=== PATIENT | male | born 1985 | race African-American/Black ===

== ENCOUNTER 2017-09-20 10:55 | Inpatient (IN) | payer OTHER ==
[~2017-09-20] VITALS: Ht 175.3 cm; Wt 85.7 kg
[2017-09-20 12:24] LABS: Basophils # (auto) 0.1 uL; Hemoglobin 19.3 g/dL (13.5-17.5); Lymphocytes # (auto) 2.1 uL; White Blood Cell 11.9 10^3/uL (4.4-10.8)
[2017-09-20 12:26] LABS: Eosinophils # (auto) 0.2 uL; Eosinophils % (auto) 1.4 % (0.0-7.0); Hematocrit 53.9 % (41.0-53.0); Lymphocytes % (auto) 17.6 % (10.0-50.0); Mean Corpuscular Hemoglobin 30.9 pg (28.0-32.0); Mean Corpuscular Hgb Conc. 35.8 g/dL (32.0-36.0); Mean Corpuscular Volume 86.3 fL (80.0-100.0); Monocytes % (auto) 8.5 % (0.0-12.0); Neutrophils # (auto) 8.5 uL; Neutrophils % (auto) 71.5 % (37.0-80.0); Nucleated Red Blood Cells % 1.4 %; Platelet Count (auto) 187 10^3/uL (140-450); Red Blood Cells 6.25 10^6/uL (4.5-5.90); Red Cell Distribution Width 13.1 % (11.8-14.3)
[2017-09-20 12:44] LABS: Albumin 3.6 g/dL (3.4-5.0); BUN/Creatinine Ratio 9.3; Magnesium 2.8 mg/dL (1.6-2.6); Total Protein 8.7 g/dL (6.4-8.2)
[2017-09-20 12:57] LABS: Potassium 2.8 mmol/L (3.5-5.1)
[2017-09-20] MEDS ORDERED: cloNIDine HCL 0.1 MG TAB PO ONE (13:30)
[2017-09-20] MEDS ORDERED: POTASSIUM CHL 10% (20 MEQ/15ML) 15ml ORAL SOLN PO ONE (13:45)
[2017-09-20] MEDS ORDERED: hydrALAZINE HCL 20 MG/ML VL IV ONE (15:15)
[2017-09-20] MEDS ORDERED: LABETALOL HCL 5 MG/ML ML 20ML VIAL IV ONE (15:15)
[2017-09-20] MEDS ORDERED: NITROGLYCERIN 50MG/250ML 250 ML IV SCH (15:38)
[2017-09-20] MEDS ORDERED: MORPHINE SULFATE 4 MG/ML SYR/VIAL IV PRN ×2 (15:45)
[2017-09-20] MEDS ORDERED: LORazepam 0.5 MG TAB PO PRN (15:45)
[2017-09-20] MEDS ORDERED: hydrALAZINE HCL 20 MG/ML VL IV PRN (15:45)
[2017-09-20] MEDS ORDERED: PROMETHAZINE HCL 25 MG/ML 1ML IV PRN (15:45)
[2017-09-20] MEDS ORDERED: LABETALOL HCL 5 MG/ML ML 20ML VIAL IV PRN (15:45)
[2017-09-20] MEDS ORDERED: ACETAMINOPHEN 500 MG TAB PO PRN (15:45)
[2017-09-20] MEDS ORDERED: NITROGLYCERIN 0.4 MG SL TAB SL PRN (15:45)
[2017-09-20] MEDS ORDERED: TEMAZEPAM 15 MG CAP PO PRN (15:45)
[2017-09-20 16:10] LABS: INR 1.01 (0.9-1.15); Partial Thromboplastin Time 28.4 sec (22.64-33.71)
[2017-09-20] MEDS: PANTOPRAZOLE 40 MG TAB PO SCH (16:45)
[2017-09-20 20:19] LABS: Albumin 3.1 g/dL (3.4-5.0); BUN/Creatinine Ratio 9.8; Bilirubin, Total 0.7 mg/dL (0.2-1.0); Calcium 8.5 mg/dL (8.5-10.1); Total Protein 7.5 g/dL (6.4-8.2)
[2017-09-20 20:25] LABS: Potassium 2.7 mmol/L (3.5-5.1)
[2017-09-20] MEDS ORDERED: POTASSIUM CHL 20 Meq TABLET PO ONE (20:30)
[2017-09-20] MEDS: SODIUM CHLOR 0.9% PF (SALINE LOCK) 10ML VIAL IV SCH (20:52)
[2017-09-20] MEDS: CARVEDILOL 3.125 MG TAB PO SCH (20:52)
[2017-09-20 22:07] LABS: Urine Bacteria FEW /hpf (None Seen); Urine Blood Negative /uL (Negative); Urine Specific Gravity 1.008 (1.001-1.035); Urine WBC 27 /hpf (0 - 3)
[2017-09-20 22:26] LABS: Alcohol, Urine < 3.0 mg/dL (0-5); Amphetamine Screen, Urine NEGATIVE (NEGATIVE); Barbiturate Scree,Urine NEGATIVE (NEGATIVE); Benzodiazephine Screen, Urine NEGATIVE (NEGATIVE); Cannabinoid Screen, Urine POSITIVE (NEGATIVE); Cocaine Screen, Urine NEGATIVE (NEGATIVE); Opiate Scree,Urine NEGATIVE (NEGATIVE); Phencyclidine Screen, Urine NEGATIVE (NEGATIVE)
[2017-09-20] MEDS: LABETALOL HCL 5 MG/ML ML 20ML VIAL IV PRN (22:59)
[2017-09-21] VITALS (8 sets, daily range): BP systolic 142–181; BP diastolic 95–124
[2017-09-21] MEDS: LABETALOL HCL 5 MG/ML ML 20ML VIAL IV PRN ×4 (01:49→06:18)
[2017-09-21] MEDS: SODIUM CHLOR 0.9% PF (SALINE LOCK) 10ML VIAL IV SCH ×3 (05:57→22:39)
[2017-09-21 06:24] LABS: Basophils # (auto) 0.1 uL; Basophils % (auto) 0.7 % (0.0-2.0); Eosinophils # (auto) 0.2 uL; Eosinophils % (auto) 2.1 % (0.0-7.0); Hematocrit 46.4 % (41.0-53.0); Hemoglobin 16.3 g/dL (13.5-17.5); Lymphocytes # (auto) 2.1 uL; Lymphocytes % (auto) 25.4 % (10.0-50.0); Mean Corpuscular Hemoglobin 30.4 pg (28.0-32.0); Mean Corpuscular Hgb Conc. 35.2 g/dL (32.0-36.0); Mean Corpuscular Volume 86.4 fL (80.0-100.0); Monocytes # (auto) 0.7 uL; Monocytes % (auto) 8.5 % (0.0-12.0); Neutrophils # (auto) 5.3 uL; Neutrophils % (auto) 63.3 % (37.0-80.0); Nucleated Red Blood Cells % 0.2 %; Platelet Count (auto) 144 10^3/uL (140-450); Red Blood Cells 5.37 10^6/uL (4.5-5.90); Red Cell Distribution Width 13.1 % (11.8-14.3); White Blood Cell 8.5 10^3/uL (4.4-10.8)
[2017-09-21 06:36] LABS: BUN/Creatinine Ratio 10.1; Bilirubin, Total 0.9 mg/dL (0.2-1.0); Calcium 8.6 mg/dL (8.5-10.1); Potassium 3.1 mmol/L (3.5-5.1); Total Protein 6.9 g/dL (6.4-8.2)
[2017-09-21] MEDS ORDERED: amLODIPine BESYLATE 5 MG TAB PO SCH (10:00)
[2017-09-21] MEDS: ASPirin 81 mg TAB PO SCH (10:21)
[2017-09-21] MEDS: CARVEDILOL 3.125 MG TAB PO SCH ×2 (10:21→22:41)
[2017-09-21] MEDS: PANTOPRAZOLE 40 MG TAB PO SCH (10:21)
[2017-09-21] MEDS: hydrALAZINE HCL 25 MG TAB PO SCH ×3 (14:00→22:40)
[2017-09-21] MEDS: POTASSIUM CHL 20 Meq TABLET PO SCH ×2 (15:39→22:41)
[2017-09-21 17:12] LABS: Urine Bacteria NONE SEEN /hpf (None Seen); Urine Blood Negative /uL (Negative); Urine Specific Gravity 1.013 (1.001-1.035); Urine WBC 3 /hpf (0 - 3)
[2017-09-21] MEDS: ATORVASTATIN 20 MG TAB PO SCH (22:41)
[2017-09-22] VITALS (7 sets, daily range): BP systolic 157–188; BP diastolic 85–116
[2017-09-22] MEDS: SODIUM CHLOR 0.9% PF (SALINE LOCK) 10ML VIAL IV SCH ×3 (05:46→22:07)
[2017-09-22] MEDS: hydrALAZINE HCL 25 MG TAB PO SCH ×3 (05:47→22:06)
[2017-09-22 07:19] LABS: Basophils # (auto) 0.1 uL; Basophils % (auto) 0.7 % (0.0-2.0); Eosinophils # (auto) 0.3 uL; Eosinophils % (auto) 3.7 % (0.0-7.0); Hematocrit 47.6 % (41.0-53.0); Hemoglobin 16.9 g/dL (13.5-17.5); Lymphocytes # (auto) 1.7 uL; Lymphocytes % (auto) 18.6 % (10.0-50.0); Mean Corpuscular Hgb Conc. 35.6 g/dL (32.0-36.0); Mean Corpuscular Volume 87.1 fL (80.0-100.0); Monocytes # (auto) 0.7 uL; Monocytes % (auto) 7.7 % (0.0-12.0); Neutrophils # (auto) 6.3 uL; Neutrophils % (auto) 69.3 % (37.0-80.0); Nucleated Red Blood Cells % 0.4 %; Platelet Count (auto) 146 10^3/uL (140-450); Red Blood Cells 5.47 10^6/uL (4.5-5.90); Red Cell Distribution Width 13.2 % (11.8-14.3); White Blood Cell 9.1 10^3/uL (4.4-10.8)
[2017-09-22 07:32] LABS: BUN/Creatinine Ratio 10.4; Magnesium 2.5 mg/dL (1.6-2.6); Potassium 3.2 mmol/L (3.5-5.1)
[2017-09-22] MEDS: LABETALOL HCL 5 MG/ML ML 20ML VIAL IV PRN ×2 (08:41→17:51)
[2017-09-22] MEDS ORDERED: POTASSIUM CHL 20 Meq TABLET PO ONE (09:00)
[2017-09-22] MEDS ORDERED: amLODIPine BESYLATE 5 MG TAB PO SCH (10:00)
[2017-09-22] MEDS ORDERED: SPIRONOLACTONE 25 MG TAB PO SCH (10:00)
[2017-09-22] MEDS: PANTOPRAZOLE 40 MG TAB PO SCH (10:29)
[2017-09-22] MEDS: CARVEDILOL 3.125 MG TAB PO SCH ×2 (10:30→23:00)
[2017-09-22] MEDS: ASPirin 81 mg TAB PO SCH (10:32)
[2017-09-22] MEDS: POTASSIUM CHL 20 Meq TABLET PO SCH ×2 (10:33→22:04)
[2017-09-22] MEDS ORDERED: cloNIDine 0.3 mg/24hr 7DAY PATCH TD SCH (20:00)
[2017-09-22] MEDS: ATORVASTATIN 20 MG TAB PO SCH (22:03)
[2017-09-22] MEDS: HYDROcodone-ACET 5/325MG TAB PO PRN (22:07)
[2017-09-23] MEDS: LABETALOL HCL 5 MG/ML ML 20ML VIAL IV PRN (01:52)
[2017-09-23 05:12] VITALS: BP_SYST 145; BP_SYST 160; BP_SYST 162; BP_SYST 170; BP_DIAS 86; BP_DIAS 93; BP_DIAS 94; BP_DIAS 99
[2017-09-23] MEDS: hydrALAZINE HCL 25 MG TAB PO SCH (07:00)
[2017-09-23] MEDS: SODIUM CHLOR 0.9% PF (SALINE LOCK) 10ML VIAL IV SCH ×3 (07:00→21:43)
[2017-09-23 07:07] LABS: Basophils # (auto) 0.1 uL; Basophils % (auto) 0.7 % (0.0-2.0); Eosinophils # (auto) 0.4 uL; Eosinophils % (auto) 3.8 % (0.0-7.0); Hematocrit 47.4 % (41.0-53.0); Hemoglobin 16.9 g/dL (13.5-17.5); Lymphocytes # (auto) 1.8 uL; Lymphocytes % (auto) 19.4 % (10.0-50.0); Mean Corpuscular Hemoglobin 31.4 pg (28.0-32.0); Mean Corpuscular Hgb Conc. 35.6 g/dL (32.0-36.0); Mean Corpuscular Volume 88.1 fL (80.0-100.0); Monocytes # (auto) 0.7 uL; Monocytes % (auto) 7.5 % (0.0-12.0); Neutrophils # (auto) 6.3 uL; Neutrophils % (auto) 68.6 % (37.0-80.0); Nucleated Red Blood Cells % 0.3 %; Platelet Count (auto) 159 10^3/uL (140-450); Red Blood Cells 5.38 10^6/uL (4.5-5.90); Red Cell Distribution Width 13.3 % (11.8-14.3); White Blood Cell 9.3 10^3/uL (4.4-10.8)
[2017-09-23 07:14] LABS: BUN/Creatinine Ratio 11.7; Calcium 9.1 mg/dL (8.5-10.1); Magnesium 2.7 mg/dL (1.6-2.6); Potassium 3.4 mmol/L (3.5-5.1)
[2017-09-23 08:00] VITALS: BP 140/79
[2017-09-23] MEDS ORDERED: POTASSIUM CHL 20 Meq TABLET PO ONE (08:30)
[2017-09-23] MEDS ORDERED: ARTIFICIAL TEARS 15ml EACHEYE PRN (08:30)
[2017-09-23 09:00] VITALS: BP 140/79
[2017-09-23] MEDS: HYDROcodone-ACET 5/325MG TAB PO PRN (09:14)
[2017-09-23] MEDS: ASPirin 81 mg TAB PO SCH (10:28)
[2017-09-23] MEDS: SPIRONOLACTONE 25 MG TAB PO SCH ×2 (10:28→18:38)
[2017-09-23] MEDS: NIFEdipine ER 30 MG TAB PO SCH (10:31)
[2017-09-23] MEDS: PANTOPRAZOLE 40 MG TAB PO SCH (10:32)
[2017-09-23] MEDS: CARVEDILOL 3.125 MG TAB PO SCH ×2 (10:32→21:43)
[2017-09-23 12:49] VITALS: BP 142/86
[2017-09-23 17:00] VITALS: BP 129/80
[2017-09-23] MEDS: ATORVASTATIN 20 MG TAB PO SCH (21:43)
[2017-09-23 22:00] VITALS: BP_SYST 125; BP_SYST 139; BP_SYST 141; BP_DIAS 71; BP_DIAS 73; BP_DIAS 78
[2017-09-23 22:01] LABS: Urine Bacteria NONE SEEN /hpf (None Seen); Urine Blood Negative /uL (Negative); Urine Mucus FEW (None Seen); Urine Specific Gravity 1.011 (1.001-1.035); Urine WBC 20 /hpf (0 - 3)
[2017-09-23 22:15] LABS: Protein, Urine 179.2 mg/dL (0.0-11.9)
[2017-09-24] VITALS (8 sets, daily range): BP systolic 129–164; BP diastolic 75–106
[2017-09-24] MEDS: SPIRONOLACTONE 25 MG TAB PO SCH ×2 (05:33→17:41)
[2017-09-24] MEDS: SODIUM CHLOR 0.9% PF (SALINE LOCK) 10ML VIAL IV SCH ×3 (05:33→22:29)
[2017-09-24 06:16] LABS: Basophils # (auto) 0.1 uL; Basophils % (auto) 0.8 % (0.0-2.0); Eosinophils # (auto) 0.3 uL; Eosinophils % (auto) 3.3 % (0.0-7.0); Hematocrit 46.6 % (41.0-53.0); Hemoglobin 16.5 g/dL (13.5-17.5); Lymphocytes # (auto) 1.9 uL; Lymphocytes % (auto) 22.8 % (10.0-50.0); Mean Corpuscular Hemoglobin 31.1 pg (28.0-32.0); Mean Corpuscular Hgb Conc. 35.5 g/dL (32.0-36.0); Mean Corpuscular Volume 87.8 fL (80.0-100.0); Monocytes # (auto) 0.7 uL; Monocytes % (auto) 8.2 % (0.0-12.0); Neutrophils # (auto) 5.5 uL; Neutrophils % (auto) 64.9 % (37.0-80.0); Nucleated Red Blood Cells % 0.1 %; Platelet Count (auto) 166 10^3/uL (140-450); Red Blood Cells 5.31 10^6/uL (4.5-5.90); Red Cell Distribution Width 12.9 % (11.8-14.3); White Blood Cell 8.5 10^3/uL (4.4-10.8)
[2017-09-24 06:34] LABS: Calcium 9.4 mg/dL (8.5-10.1); Magnesium 2.3 mg/dL (1.6-2.6); Potassium 3.7 mmol/L (3.5-5.1)
[2017-09-24 06:43] LABS: BUN/Creatinine Ratio 9.7
[2017-09-24] MEDS: PANTOPRAZOLE 40 MG TAB PO SCH (10:02)
[2017-09-24] MEDS: ASPirin 81 mg TAB PO SCH (10:03)
[2017-09-24] MEDS: NIFEdipine ER 30 MG TAB PO SCH (10:03)
[2017-09-24] MEDS: CARVEDILOL 3.125 MG TAB PO SCH ×2 (10:04→22:27)
[2017-09-24] MEDS ORDERED: CLO3P TD (10:45)
[2017-09-24] MEDS ORDERED: NIFE90TA30 PO (10:45)
[2017-09-24] MEDS ORDERED: ASPI81CH43 PO (10:45)
[2017-09-24] MEDS ORDERED: CAR3125T PO (10:45)
[2017-09-24] MEDS ORDERED: ATOR20TA50 PO (10:45)
[2017-09-24] MEDS: ATORVASTATIN 20 MG TAB PO SCH (22:26)
[2017-09-25 05:36] VITALS: BP_SYST 142; BP_SYST 145; BP_DIAS 91; BP_DIAS 93
[2017-09-25 05:37] VITALS: BP 151/91
[2017-09-25 05:38] VITALS: BP 158/92
[2017-09-25 05:40] LABS: Basophils # (auto) 0.1 uL; Basophils % (auto) 0.7 % (0.0-2.0); Eosinophils # (auto) 0.3 uL; Eosinophils % (auto) 3.4 % (0.0-7.0); Hemoglobin 17.6 g/dL (13.5-17.5); Lymphocytes # (auto) 2.2 uL; Lymphocytes % (auto) 22.5 % (10.0-50.0); Mean Corpuscular Hemoglobin 30.9 pg (28.0-32.0); Mean Corpuscular Hgb Conc. 35.2 g/dL (32.0-36.0); Monocytes # (auto) 0.9 uL; Monocytes % (auto) 8.9 % (0.0-12.0); Neutrophils # (auto) 6.3 uL; Neutrophils % (auto) 64.5 % (37.0-80.0); Nucleated Red Blood Cells % 2.6 %; Platelet Count (auto) 182 10^3/uL (140-450); Red Blood Cells 5.68 10^6/uL (4.5-5.90); Red Cell Distribution Width 13.1 % (11.8-14.3); White Blood Cell 9.8 10^3/uL (4.4-10.8)
[2017-09-25 05:50] LABS: Calcium 9.3 mg/dL (8.5-10.1); Magnesium 2.3 mg/dL (1.6-2.6); Potassium 3.7 mmol/L (3.5-5.1)
[2017-09-25 05:52] LABS: BUN/Creatinine Ratio 11.7
[2017-09-25] MEDS: SPIRONOLACTONE 25 MG TAB PO SCH (05:56)
[2017-09-25] MEDS: SODIUM CHLOR 0.9% PF (SALINE LOCK) 10ML VIAL IV SCH (05:57)
[2017-09-25 08:00] VITALS: BP 156/103
[2017-09-25 09:05] VITALS: BP 156/103
[2017-09-25] MEDS: CARVEDILOL 3.125 MG TAB PO SCH (10:11)
[2017-09-25] MEDS: ASPirin 81 mg TAB PO SCH (10:11)
[2017-09-25] MEDS: PANTOPRAZOLE 40 MG TAB PO SCH (10:11)
[2017-09-25] MEDS: NIFEdipine ER 30 MG TAB PO SCH (10:12)
== END 2017-09-25 13:45 | disposition home or self-care (01) | DRG 305 ==
LOC: ER 10:55 → TELE 10:56 → TELE-WESTW 09-21 01:00
PROVIDERS: ADMIT Internal Medicine; ATTEND Internal Medicine
DX: I16.1 Hypertensive emergency (principal); N17.9 Acute kidney failure, unspecified; I42.9 Cardiomyopathy, unspecified; E87.5 Hyperkalemia; E87.1 Hypo-osmolality and hyponatremia; N18.3 Chronic kidney disease, stage 3 (moderate); N39.0 Urinary tract infection, site not specified; I08.0 Rheumatic disorders of both mitral and aortic valves; R80.9 Proteinuria, unspecified; E87.6 Hypokalemia; I12.9 Hypertensive chronic kidney disease with stage 1 through stage 4 chronic kidney disease, or unspecified chronic kidney disease; Z91.013 Allergy to seafood; Z82.49 Family history of ischemic heart disease and other diseases of the circulatory system; Z83.3 Family history of diabetes mellitus; Z87.891 Personal history of nicotine dependence
CPT/HCPCS: 36415; 70450; 71046; 76775; 80048; 80053; 80061; 80307; 81001; 82088; 82550; 82570; 83735; 83835; 83880; 84156; 84244; 84300; 84443; 84484; 85025; 85610; 85652; 85730; 86141; 93005; 93306; 96365; 96375

== ENCOUNTER 2018-08-10 00:16 | Inpatient (IN) | payer OTHER ==
[~2018-08-10] VITALS: Ht 180.3 cm; Wt 86.4 kg
[~2018-08-10 00:16] MED LIST: ASPI81CH43 PO; ATOR20TA50 PO; CAR3125T PO; CLO3P TD; NIFE90TA30 PO
[2018-08-10] MEDS ORDERED: cloNIDine HCL 0.1 MG TAB PO ONE (00:30)
[2018-08-10 00:55] LABS: Basophils # (auto) 0.1 uL; Basophils % (auto) 0.5 % (0.0-2.0); Eosinophils # (auto) 0.1 uL; Eosinophils % (auto) 0.5 % (0.0-7.0); Hematocrit 49.7 % (41.0-53.0); Hemoglobin 17.4 g/dL (13.5-17.5); Lymphocytes # (auto) 1.1 uL; Lymphocytes % (auto) 7.1 % (10.0-50.0); Mean Corpuscular Hemoglobin 29.7 pg (28.0-32.0); Mean Corpuscular Volume 84.9 fL (80.0-100.0); Monocytes # (auto) 0.7 uL; Monocytes % (auto) 4.3 % (0.0-12.0); Neutrophils # (auto) 13.4 uL; Neutrophils % (auto) 87.6 % (37.0-80.0); Platelet Count (auto) 192 10^3/uL (140-450); Red Blood Cells 5.86 10^6/uL (4.5-5.90); Red Cell Distribution Width 12.9 % (11.8-14.3); White Blood Cell 15.3 10^3/uL (4.4-10.8)
[2018-08-10 01:08] LABS: Albumin 3.7 g/dL (3.4-5.0); BUN/Creatinine Ratio 12.5; Calcium 8.9 mg/dL (8.5-10.1); Magnesium 2.5 mg/dL (1.6-2.6)
[2018-08-10 01:13] LABS: Bilirubin, Total 0.3 mg/dL (0.2-1.0); Total Protein 8.5 g/dL (6.4-8.2)
[2018-08-10 01:18] LABS: Potassium 2.6 mmol/L (3.5-5.1)
[2018-08-10 02:12] LABS: Alcohol, Urine < 3.0 mg/dL (0-5); Amphetamine Screen, Urine NEGATIVE (NEGATIVE); Barbiturate Scree,Urine NEGATIVE (NEGATIVE); Benzodiazephine Screen, Urine NEGATIVE (NEGATIVE); Cannabinoid Screen, Urine POSITIVE (NEGATIVE); Cocaine Screen, Urine NEGATIVE (NEGATIVE); Opiate Scree,Urine NEGATIVE (NEGATIVE); Phencyclidine Screen, Urine NEGATIVE (NEGATIVE); Urine Bacteria FEW /hpf (None Seen); Urine Blood 2+ /uL (Negative); Urine WBC 1 /hpf (0 - 3)
[2018-08-10] MEDS ORDERED: POTASSIUM CHL 20MEQ/100ML 100 ML IV ONE (05:30)
[2018-08-10] MEDS ORDERED: ASPirin 81 mg TAB PO ONE (05:30)
[2018-08-10] MEDS ORDERED: HEPARIN DRIP/D5W 100UNITS/ML 250 ML IV SCH (05:39)
[2018-08-10] MEDS ORDERED: HEPARIN SODIUM (PORCINE) 5000 UNITS/ML 1ML VIAL IV ONE (05:45)
[2018-08-10] MEDS: SODIUM CHLOR 0.9% PF (SALINE LOCK) 10ML VIAL/SYR IV SCH ×3 (06:18→21:26)
[2018-08-10 06:23] LABS: Basophils # (auto) 0.1 uL; Basophils % (auto) 0.6 % (0.0-2.0); Eosinophils # (auto) 0.1 uL; Eosinophils % (auto) 1.3 % (0.0-7.0); Hemoglobin 16.6 g/dL (13.5-17.5); Lymphocytes # (auto) 1.4 uL; Lymphocytes % (auto) 15.5 % (10.0-50.0); Mean Corpuscular Hemoglobin 30.1 pg (28.0-32.0); Mean Corpuscular Hgb Conc. 35.2 g/dL (32.0-36.0); Mean Corpuscular Volume 85.4 fL (80.0-100.0); Monocytes # (auto) 0.6 uL; Monocytes % (auto) 6.7 % (0.0-12.0); Neutrophils # (auto) 6.8 uL; Neutrophils % (auto) 75.9 % (37.0-80.0); Nucleated Red Blood Cells % 0.1 %; Platelet Count (auto) 174 10^3/uL (140-450); Red Blood Cells 5.51 10^6/uL (4.5-5.90)
[2018-08-10] MEDS ORDERED: ACETAMINOPHEN 325 MG TAB PO PRN (06:45)
[2018-08-10] MEDS ORDERED: TEMAZEPAM 15 MG CAP PO PRN (06:45)
[2018-08-10] MEDS ORDERED: HYDROcodone-ACET 5/325MG TAB PO PRN (06:45)
[2018-08-10] MEDS ORDERED: MORPHINE SULFATE 4 MG/ML SYR/VIAL IV PRN (06:45)
[2018-08-10] MEDS ORDERED: NITROGLYCERIN 0.4 MG SL TAB SL PRN (06:45)
[2018-08-10] MEDS ORDERED: ATORVASTATIN 20 MG TAB PO ONE (06:45)
[2018-08-10] MEDS ORDERED: ONDANSETRON HCL 4 MG/2 ML VIAL IV PRN (06:45)
[2018-08-10] MEDS ORDERED: ENOXAPARIN SOD 100 MG/1 ML SYRINGE SC SCH (06:45)
[2018-08-10 06:49] LABS: Albumin 2.7 g/dL (3.4-5.0); BUN/Creatinine Ratio 13.4; Calcium 6.9 mg/dL (8.5-10.1); Magnesium 1.9 mg/dL (1.6-2.6)
[2018-08-10 06:54] LABS: Bilirubin, Total 0.4 mg/dL (0.2-1.0); Total Protein 6.7 g/dL (6.4-8.2)
[2018-08-10 06:57] LABS: Potassium 3.2 mmol/L (3.5-5.1)
[2018-08-10 06:59] LABS: INR 0.97 (0.9-1.15); Prothrombin Time 10.4 sec (9.27-12.13)
[2018-08-10] MEDS: cloNIDine HCL 0.1 MG TAB PO PRN ×3 (07:33→21:26)
[2018-08-10] MEDS: ASPirin 81 mg TAB PO SCH (09:22)
[2018-08-10] MEDS: ENOXAPARIN SOD 100 MG/1 ML SYRINGE SC SCH ×2 (09:23→21:26)
[2018-08-10] MEDS: NIFEdipine ER 30 MG TAB PO SCH (09:23)
[2018-08-10] MEDS: PANTOPRAZOLE 40 MG TAB PO SCH (09:23)
[2018-08-10] MEDS ORDERED: CARVEDILOL 3.125 MG TAB PO SCH (10:00)
[2018-08-10] MEDS ORDERED: hydrALAZINE HCL 25 MG TAB PO PRN (10:15)
[2018-08-10 12:00] VITALS: BP 163/116
--- NOTE | 2018-08-10 12:00 | NUR ---
Telemetry admit from ER CARLOS [facility]CHRAN admitted to Telemetry unit after SBAR received. Patient oriented to RAGINI DIXON RN primary RN, unit, room, bed, and unit policies regarding patient care and visiting hours. Patient now on continuous telemetry monitoring, tele box # 29 and telemetry reading on arrival to unit is NORMAL SINUS RHYTHM 79 BPM. Patient weighed by bedscale and encouraged to call if they need something. All questions and concerns addressed, patient verbalized understanding.
--- NOTE | 2018-08-10 13:35 | NUR ---
DR. CHÁVEZ AT BEDSIDE. NEW ORDERS RECEIVED.
[2018-08-10 15:23] LABS: Cholesterol 258 mg/dL (< 200)
[2018-08-10 15:26] LABS: HDL Cholesterol 61 mg/dL (40-59); LDL Cholesterol 180 mg/dL (< 100); Triglycerides 113 mg/dL (< 150)
[2018-08-10 17:00] VITALS: BP 149/96
--- NOTE | 2018-08-10 19:15 | NUR ---
Opening Shift Note Assumed care of patient, awake and alert x 4. No S/S of distress/SOB or pain. Bed is in lowest position and locked. Call light within reach. Board updated. Tele box number matches monitor and leads are in correct placement. Sheriff miller at bedside. Instructed on POC and to call for assist PRN, will continue to monitor for changes Q1hr and PRN.
[2018-08-10] MEDS: CARVEDILOL 3.125 MG TAB PO SCH (21:26)
[2018-08-10 22:00] VITALS: BP 171/102
[2018-08-10] MEDS ORDERED: ATORVASTATIN 20 MG TAB PO SCH (22:00)
[2018-08-11 04:48] VITALS: BP 142/90
[2018-08-11 05:44] LABS: Albumin 3.2 g/dL (3.4-5.0); BUN/Creatinine Ratio 10.2; Calcium 8.3 mg/dL (8.5-10.1)
[2018-08-11 05:47] LABS: Bilirubin, Total 0.9 mg/dL (0.2-1.0); Total Protein 7.3 g/dL (6.4-8.2)
[2018-08-11 05:49] LABS: Basophils # (auto) 0 uL; Basophils % (auto) 0.4 % (0.0-2.0); Eosinophils # (auto) 0.2 uL; Eosinophils % (auto) 2.9 % (0.0-7.0); Hematocrit 46.8 % (41.0-53.0); Hemoglobin 16.6 g/dL (13.5-17.5); Lymphocytes # (auto) 2.7 uL; Mean Corpuscular Hemoglobin 30.2 pg (28.0-32.0); Mean Corpuscular Hgb Conc. 35.5 g/dL (32.0-36.0); Mean Corpuscular Volume 85.2 fL (80.0-100.0); Monocytes # (auto) 0.7 uL; Monocytes % (auto) 8.7 % (0.0-12.0); Neutrophils # (auto) 4.3 uL; Nucleated Red Blood Cells % 0.4 %; Platelet Count (auto) 179 10^3/uL (140-450); Red Cell Distribution Width 12.8 % (11.8-14.3); White Blood Cell 7.9 10^3/uL (4.4-10.8)
[2018-08-11] MEDS: SODIUM CHLOR 0.9% PF (SALINE LOCK) 10ML VIAL/SYR IV SCH ×3 (06:00→12:10)
[2018-08-11 06:02] LABS: Potassium 2.6 mmol/L (3.5-5.1)
--- NOTE | 2018-08-11 06:07 | NUR ---
Paged hospitalist to notify of critical low potassium (2.6). Patient has a low potassium yesterday of 2.6 and was given 20 mEq of potassium chloride IV infusion, whereupon his potassium mare to 3.2. Patient does not currently have orders for any potassium to be given, PO or IV.
[2018-08-11] MEDS ORDERED: POTASSIUM CHL 20 Meq TABLET PO ONE (06:30)
--- NOTE | 2018-08-11 07:00 | NUR ---
Opening Shift Note Assumed care of patient, awake and alert. No S/S of distress/SOB or pain. Instructed on POC and to call for assist PRN, will continue to monitor for changes Q1hr and PRN.
[2018-08-11] MEDS: ENOXAPARIN SOD 100 MG/1 ML SYRINGE SC SCH ×2 (08:33→21:25)
[2018-08-11] MEDS: ASPirin 81 mg TAB PO SCH (08:34)
[2018-08-11] MEDS: PANTOPRAZOLE 40 MG TAB PO SCH (08:35)
[2018-08-11] MEDS: CARVEDILOL 3.125 MG TAB PO SCH (08:35)
[2018-08-11] MEDS: NIFEdipine ER 30 MG TAB PO SCH (08:36)
[2018-08-11] MEDS: cloNIDine HCL 0.1 MG TAB PO PRN ×3 (08:37→21:24)
[2018-08-11 08:52] VITALS: BP 160/99
[2018-08-11 11:28] LABS: Protein, Urine 288.5 mg/dL (0.0-11.9)
--- NOTE | 2018-08-11 12:00 | NUR ---
left message for Lenore, in regards to possible transfer for patient in regards to patients custody status waiting for a call back.
[2018-08-11 12:12] VITALS: BP 155/91
--- NOTE | 2018-08-11 13:00 | NUR ---
JAI LEFT TOLD PATIENT HE WAS FREE TO GO AND THERE WAS NO LONGER A HOLD ON HIM.
--- NOTE | 2018-08-11 14:09 | NUR ---
SPOKE WITH EUFEMIA KUMAR AT [facility], INFORMED HER THAT DR CHÁVEZ WANTS TO KEEP PATIENT HERE UNTIL POSSIBLY TOMORROW. EUFEMIA IS AGREEABLE TO THIS AND WOULD LIKE UPDATE ON PATIENT STATUS TOMORROW.
[2018-08-11 16:54] VITALS: BP 163/99
--- NOTE | 2018-08-11 19:14 | NUR ---
Opening Shift Note Assumed care of patient, awake and alert x 4. No S/S of distress/SOB or pain. Bed is in lowest position and locked. Call light within reach. Board updated. Tele box number matches monitor and leads are in correct placement. Instructed on POC and to call for assist PRN, will continue to monitor for changes Q1hr and PRN.
[2018-08-11] MEDS: LABETALOL HCL 200 MG TAB PO SCH (21:24)
[2018-08-11] MEDS: ATORVASTATIN 20 MG TAB PO SCH (21:24)
[2018-08-11 22:00] VITALS: BP 163/123
[2018-08-12 05:51] VITALS: BP 150/97
[2018-08-12 06:17] LABS: Albumin 3.2 g/dL (3.4-5.0); Calcium 8.6 mg/dL (8.5-10.1)
[2018-08-12 06:21] LABS: BUN/Creatinine Ratio 10.3; Bilirubin, Total 0.8 mg/dL (0.2-1.0); Phosphorus 3.6 mg/dL (2.5-4.90); Total Protein 7.3 g/dL (6.4-8.2)
[2018-08-12 06:27] LABS: Potassium 2.5 mmol/L (3.5-5.1)
--- NOTE | 2018-08-12 06:28 | NUR ---
Notified PRIYANK Pandya of critical low potassium of 2.5 mEq. PRIYANK Pandya ordered 40 mEq of KCL ER PO once. Order placed and will be given.
[2018-08-12] MEDS ORDERED: POTASSIUM CHL 20 Meq TABLET PO ONE (06:30)
[2018-08-12] MEDS: SODIUM CHLOR 0.9% PF (SALINE LOCK) 10ML VIAL/SYR IV SCH ×3 (06:55→21:42)
[2018-08-12] MEDS ORDERED: ADENOSINE 73 MG in GIVE UN-DILUTED 0 ML IV STA (08:09)
[2018-08-12 08:45] VITALS: BP 145/105
--- NOTE | 2018-08-12 08:59 | NUR ---
UPDATED CLINICALS FAXED TO [facility] [phone]
[2018-08-12 09:00] VITALS: BP 152/95
--- NOTE | 2018-08-12 10:10 | NUR ---
RECEIVED REPORT RECEIVED REPORT FOR SAMI HOFFMANN. PATIENT STILL CURRENTLY DOWN FOR STRESS TEST.
--- NOTE | 2018-08-12 10:30 | NUR ---
PATIENT RETURNED FROM STRESS TEST PATIENT BACK FROM STRESS TEST LAYING IN BED. PATIENT A&OX4, ON ROOM AIR WITH EVEN AND UNLABORED RESPIRATIONS. NO S/S OF DISTRESS/SOB OR PAIN AT THIS TIME. BP ELEVATED AT 152-95, WILL GIVE ALL MORNING MEDICATIONS, INCLUDING BLOOD PRESSURE MEDICATIONS. WILL CONTINUE TO MONITOR Q1H.
[2018-08-12 11:04] LABS: Hepatitis B Surface Antigen Negative (Negative); Hepatitis C Antibody Negative (Negative)
[2018-08-12] MEDS: ENOXAPARIN SOD 100 MG/1 ML SYRINGE SC SCH ×2 (11:26→21:40)
[2018-08-12] MEDS: PANTOPRAZOLE 40 MG TAB PO SCH (11:27)
[2018-08-12] MEDS: ASPirin 81 mg TAB PO SCH (11:27)
[2018-08-12] MEDS: LABETALOL HCL 200 MG TAB PO SCH ×2 (11:27→21:41)
[2018-08-12] MEDS: NIFEdipine ER 30 MG TAB PO SCH (11:28)
[2018-08-12] MEDS ORDERED: ERGOCALCIFEROL 50,000 UNIT(1.25MG) CAP PO SCH (11:45)
--- NOTE | 2018-08-12 12:30 | NUR ---
DR. CHÁVEZ AT NURSES STATION AGAIN. INFORMED DR. CHÁVEZ PATIENT RETURNED FROM STRESS TEST A LITTLE EARLIER, AND INFORMED HIM OF LOW POTASSIUM EARLIER THIS AM WHICH WAS COVERED WITH POTASSIUM [address] CHÁVEZ WILL WIT FOR STRESS TEST RESULTS AND WILL SEE PATIENT TOMORROW. NO NEW ORDERS RECEIVED AT THIS TIME, WILL CONTINUE TO MONITOR Q1H AND PRN.
[2018-08-12 13:00] VITALS: BP 132/83
[2018-08-12] MEDS: SPIRONOLACTONE 25 MG TAB PO SCH ×2 (13:22→18:15)
--- NOTE | 2018-08-12 15:45 | NUR ---
Report given Report given to Skip HOFFMANN. Patient awake and alert. No S/S of distress/SOB or pain at this time. Care endorsed.
--- NOTE | 2018-08-12 15:50 | NUR ---
Opening Shift Note Assumed care of patient from TAHIRA Galindo. Patient awake and alert x 4. No S/S of distress/SOB or pain. Bed is in lowest position and locked. Call light within reach. Board updated. Tele box number matches monitor and leads are in correct placement. Instructed on POC and to call for assist PRN, will continue to monitor for changes Q1hr and PRN.
[2018-08-12 17:00] VITALS: BP 149/99
--- NOTE | 2018-08-12 19:10 | NUR ---
Rounds Patient alert and oriented x 4, resting comfortably in bed.
[2018-08-12] MEDS: ATORVASTATIN 20 MG TAB PO SCH (21:40)
[2018-08-12] MEDS: cloNIDine HCL 0.1 MG TAB PO PRN (21:41)
[2018-08-12 21:44] VITALS: BP 163/97
[2018-08-13] MEDS: cloNIDine HCL 0.1 MG TAB PO PRN (04:54)
[2018-08-13 05:04] VITALS: BP 167/91
[2018-08-13 05:34] LABS: Albumin 3.1 g/dL (3.4-5.0); Calcium 8.4 mg/dL (8.5-10.1)
[2018-08-13 05:37] LABS: BUN/Creatinine Ratio 9.1; Bilirubin, Total 0.9 mg/dL (0.2-1.0); Total Protein 7.2 g/dL (6.4-8.2)
[2018-08-13 06:07] LABS: Potassium 2.7 mmol/L (3.5-5.1)
[2018-08-13] MEDS: SODIUM CHLOR 0.9% PF (SALINE LOCK) 10ML VIAL/SYR IV SCH (06:12)
[2018-08-13] MEDS: SPIRONOLACTONE 25 MG TAB PO SCH (06:12)
--- NOTE | 2018-08-13 06:30 | NUR ---
[facility] hospitalist regarding critical low potassium of 2.7 mEq. Patient has had critical values for the last three days and has received Potassium Chloride ER 40 mEq PO once. Chief Nurse believes it may be hyperaldosteronism. Addendum: 08/13/18 at 0632 by ALICE WONG RN Patient is asymptomatic.
--- NOTE | 2018-08-13 07:51 | NUR ---
Morning note Report received and bedside hand off completed. Patient observed awake, alert, and without S/S of distress in bed. Patient oriented to this RN and POC discussed. Patient's potassium low this morning at 2.7, nightshift RN stated he called [facility] agency director hospitalist without a call back. Johnna YOST paged with immediate call back, given order for 60meq PO once. Will continue to monitor, and patient verbalized understanding to call if needing assistance.
[2018-08-13] MEDS ORDERED: POTASSIUM CHL 20 Meq TABLET PO ONE (08:00)
[2018-08-13 09:00] VITALS: BP 140/89
--- NOTE | 2018-08-13 10:19 | NUR ---
Rounded Dr. Jimenez at bedside and discussed diagnosis, test results, and plan to discharge patient. Patient's questions and concerns addressed.
[2018-08-13] MEDS: NIFEdipine ER 30 MG TAB PO SCH (10:29)
[2018-08-13] MEDS: ASPirin 81 mg TAB PO SCH (10:30)
[2018-08-13] MEDS: LABETALOL HCL 200 MG TAB PO SCH (10:30)
[2018-08-13] MEDS: ENOXAPARIN SOD 100 MG/1 ML SYRINGE SC SCH (10:30)
[2018-08-13] MEDS: PANTOPRAZOLE 40 MG TAB PO SCH (10:31)
[2018-08-13 13:00] VITALS: BP 142/78
--- NOTE | 2018-08-13 13:22 | NUR ---
IV & Tele discontinued IVs in R forearm discontinued without any complications. Telemetry box removed, cleaned, and taken to [facility].
--- NOTE | 2018-08-13 13:36 | NUR ---
Discharge Discharge instructions reviewed with patient, who verbalized understanding. Patient stated he was going to catch an uber home and was ambulating off floor without S/S of distress.
[2018-08-13] MEDS ORDERED: POTASSIUM CHL 20 Meq TABLET PO SCH (14:00)
== END 2018-08-13 13:36 | disposition home or self-care (01) | DRG 280 ==
LOC: ER 00:30 → TELE 06:48 → TELE-CENTR 11:34
PROVIDERS: ADMIT Nurse Practitioner; ATTEND Family Medicine
DX: I21.4 Non-ST elevation (NSTEMI) myocardial infarction (principal); I50.43 Acute on chronic combined systolic (congestive) and diastolic (congestive) heart failure; N17.0 Acute kidney failure with tubular necrosis; I13.0 Hypertensive heart and chronic kidney disease with heart failure and stage 1 through stage 4 chronic kidney disease, or unspecified chronic kidney disease; I16.1 Hypertensive emergency; N18.4 Chronic kidney disease, stage 4 (severe); D72.829 Elevated white blood cell count, unspecified; E26.1 Secondary hyperaldosteronism; E55.9 Vitamin D deficiency, unspecified; E78.00 Pure hypercholesterolemia, unspecified; E78.5 Hyperlipidemia, unspecified; F12.10 Cannabis abuse, uncomplicated; E87.5 Hyperkalemia; E87.6 Hypokalemia; I08.0 Rheumatic disorders of both mitral and aortic valves; Z87.891 Personal history of nicotine dependence; Z91.14 Patient's other noncompliance with medication regimen
CPT/HCPCS: 36415; 71045; 76775; 78452; 80053; 80061; 80307; 81001; 82088; 82306; 82570; 83735; 83880; 83970; 84100; 84156; 84244; 84300; 84443; 84484; 85025; 85610; 85730; 86038; 86160; 86803; 87340; 93005; 93017; 94761; 96360; 96372; G0378; J0153; J3480

== ENCOUNTER 2019-03-24 07:40 | Inpatient (IN) | payer OTHER ==
[~2019-03-24] VITALS: Ht 177.8 cm; Wt 79.3 kg
[2019-03-24 08:13] LABS: Basophils # (auto) 0.1 uL; Basophils % (auto) 1.2 % (0.0-2.0); Lymphocytes # (auto) 1.5 uL; Neutrophils # (auto) 6.3 uL; Platelet Count (auto) 199 10^3/uL (140-450); White Blood Cell 8.9 10^3/uL (4.4-10.8)
[2019-03-24 08:17] LABS: Eosinophils # (auto) 0.4 uL; Eosinophils % (auto) 4.1 % (0.0-7.0); Hematocrit 45.4 % (41.0-53.0); Lymphocytes % (auto) 17.2 % (10.0-50.0); Mean Corpuscular Hemoglobin 30.4 pg (28.0-32.0); Mean Corpuscular Hgb Conc. 35.2 g/dL (32.0-36.0); Mean Corpuscular Volume 86.3 fL (80.0-100.0); Monocytes # (auto) 0.6 uL; Monocytes % (auto) 6.5 % (0.0-12.0); Nucleated Red Blood Cells % 0.8 %; Red Blood Cells 5.26 10^6/uL (4.5-5.90); Red Cell Distribution Width 13.1 % (11.8-14.3)
[2019-03-24 08:34] LABS: Albumin 3.3 g/dL (3.4-5.0); Anion Gap 9 (5-15); Blood Urea Nitrogen 46 mg/dL (7-18); Calcium 8.7 mg/dL (8.5-10.1); Carbon Dioxide 25 mmol/L (21-32); Chloride 104 mmol/L (98-107); Glucose 112 mg/dL (74-106); Sodium 138 mmol/L (136-145)
[2019-03-24 08:41] LABS: Alanine Aminotransferase 26 U/L (16-61); Alkaline Phosphatase 82 U/L (45-117); Aspartate Aminotransferase 25 U/L (15-37); BUN/Creatinine Ratio 9.2; Bilirubin, Total 0.6 mg/dL (0.2-1.0); GFR African American 17 mL/min; GFR Non-African American 14 mL/min; Total Protein 7.7 g/dL (6.4-8.2)
[2019-03-24 08:45] LABS: Potassium 2.9 mmol/L (3.5-5.1)
[2019-03-24] MEDS ORDERED: NITROGLYCERIN 0.4MG/HR TOPICAL PATCH TD ONE (08:45)
[2019-03-24] MEDS ORDERED: hydrALAZINE HCL 20 MG/ML VL IV ONE (08:45)
[2019-03-24] MEDS ORDERED: LORazepam 0.5 MG TAB PO ONE (08:45)
[2019-03-24] MEDS ORDERED: ONDANSETRON HCL 4 MG/2 ML VIAL IV ONE (08:45)
[2019-03-24] MEDS ORDERED: MORPHINE SULFATE 4 MG/ML SYR/VIAL IV ONE (08:45)
[2019-03-24] MEDS ORDERED: POTASSIUM EFFERVESENT TAB 25 MEQ PO ONE ×2 (09:00→15:00)
[2019-03-24 09:11] LABS: INR 1.01 (0.9-1.15); Partial Thromboplastin Time 27.9 sec (23.64-32.05)
[2019-03-24 09:42] LABS: Urine Bacteria NONE SEEN /hpf (None Seen); Urine Blood 1+ /uL (Negative); Urine Specific Gravity 1.009 (1.001-1.035); Urine WBC 1 /hpf (0 - 3)
[2019-03-24] MEDS ORDERED: ENOXAPARIN SOD 80 MG/0.8ML SYRINGE SC ONE (12:00)
[2019-03-24] MEDS ORDERED: MORPHINE SULFATE 4 MG/ML SYR/VIAL IV PRN (14:45)
[2019-03-24] MEDS ORDERED: MORPHINE SULF INJ 2 MG/ML SYRINGE 1ML IV PRN (14:45)
[2019-03-24] MEDS ORDERED: NITROGLYCERIN 0.4 MG SL TAB SL PRN (14:45)
[2019-03-24] MEDS ORDERED: LACTULOSE 20Gm/30ML SOLN PO PRN (14:45)
[2019-03-24] MEDS ORDERED: traMADol HCL 50 MG TAB PO PRN ×3 (14:45→19:00)
[2019-03-24] MEDS ORDERED: PROMETHAZINE HCL 25 MG/ML 1ML IV PRN (14:45)
[2019-03-24] MEDS: SODIUM CHLORIDE 0.9% 1,000 ML IV SCH ×2 (16:37→22:31)
[2019-03-24] MEDS ORDERED: SODIUM CHLORIDE 0.9% 1,000 ML IV SCH (17:13)
[2019-03-24] MEDS ORDERED: CLOPIDOGREL 300 MG TAB PO ONE (17:15)
[2019-03-24 18:46] LABS: Protein, Urine 180.5 mg/dL (0.0-11.9)
[2019-03-24 18:48] LABS: Alcohol, Urine < 3.0 mg/dL (0-5); Amphetamine Screen, Urine NEGATIVE (NEGATIVE); Barbiturate Scree,Urine NEGATIVE (NEGATIVE); Benzodiazephine Screen, Urine NEGATIVE (NEGATIVE); Cannabinoid Screen, Urine POSITIVE (NEGATIVE); Cocaine Screen, Urine NEGATIVE (NEGATIVE); Opiate Scree,Urine NEGATIVE (NEGATIVE); Phencyclidine Screen, Urine NEGATIVE (NEGATIVE)
[2019-03-24] MEDS: hydrALAZINE HCL 25 MG TAB PO SCH (21:30)
[2019-03-24] MEDS: METOPROLOL TARTRATE 50 MG TAB PO SCH (21:30)
[2019-03-24] MEDS: ATORVASTATIN 20 MG TAB PO SCH (21:30)
[2019-03-24] MEDS ORDERED: METOPROLOL TARTRATE 25 MG TAB PO SCH (22:00)
[2019-03-24] MEDS: ACETAMINOPHEN 500 MG TAB PO PRN (23:04)
[2019-03-25] VITALS (8 sets, daily range): BP systolic 130–188; BP diastolic 82–146
--- NOTE | 2019-03-25 00:30 | NUR ---
Admit to [facility] CARLOS BOND admitted to [facility] via gurney on bus driver/monitor. Patient transfered to bed, connected to unit monitoring and weighed by bedscale. Patient oriented to JOCELYNE PELAEZ, primary RN, unit, room, bed, and unit policies regarding patient care and visiting hours. All questions and concerns addressed, patient verbalized understanding.
--- NOTE | 2019-03-25 04:20 | NUR ---
ROUNDS PATIENT SLEEPING WITH NO SIGNS OR SYMPTOMS OF SOB, PAIN OR DISTRESS. CURRENTLY ON ROOM AIR, 02 SAT - 99%. BED IN LOWEST POSITION, SIDE RIALS UP X2, CALL LIGHT WITHIN REACH. WILL CONTINUE TO MONITOR.
[2019-03-25 05:43] LABS: Basophils # (auto) 0.1 uL; Basophils % (auto) 0.8 % (0.0-2.0); Eosinophils # (auto) 0.3 uL; Eosinophils % (auto) 3.2 % (0.0-7.0); Lymphocytes # (auto) 1.7 uL; Mean Corpuscular Hemoglobin 30.3 pg (28.0-32.0); Mean Corpuscular Volume 86.7 fL (80.0-100.0); Monocytes # (auto) 0.9 uL; Monocytes % (auto) 10.2 % (0.0-12.0); Neutrophils # (auto) 6.1 uL; Neutrophils % (auto) 66.8 % (37.0-80.0); Nucleated Red Blood Cells % 0.3 %; Platelet Count (auto) 185 10^3/uL (140-450); Red Blood Cells 4.61 10^6/uL (4.5-5.90); Red Cell Distribution Width 13.2 % (11.8-14.3); White Blood Cell 9.1 10^3/uL (4.4-10.8)
[2019-03-25 06:02] LABS: Albumin 2.9 g/dL (3.4-5.0); Calcium 8.2 mg/dL (8.5-10.1); Potassium 3.1 mmol/L (3.5-5.1)
[2019-03-25 06:08] LABS: BUN/Creatinine Ratio 8.4; Bilirubin, Total 0.6 mg/dL (0.2-1.0); Total Protein 6.5 g/dL (6.4-8.2)
[2019-03-25] MEDS: SODIUM CHLORIDE 0.9% 1,000 ML IV SCH (06:31)
--- NOTE | 2019-03-25 07:30 | NUR ---
RECEIVED PATIENT SEMI FOWLERS IN BED, O2 BY R/A, A/O TIMES 4, DENIES CHEST PAIN, STATES HE CAN WALK TO THE BR NO HELP NEEDED, STATES HE IS HUNGRY, EXPRESS TO HIM THAT HE WILL HAVE BREAKFAST SHORTLY, SALINE LOCK TO THE LAC 18G FLUSHED AND PATENT
--- NOTE | 2019-03-25 08:15 | NUR ---
WALKED TO THE BR NO HELP NEEDED
--- NOTE | 2019-03-25 08:30 | NUR ---
SAT UP IN THE BED ANT ATE HIS BREAKFAST NO HELP NEEDED
--- NOTE | 2019-03-25 09:39 | NUR ---
LYING IN BED WITH YES CLOSED
--- NOTE | 2019-03-25 09:43 | NUR ---
DR VALNEZUELA IN TO SEE THE PATIENT
[2019-03-25] MEDS ORDERED: ASPirin 81 mg TAB PO SCH (10:00)
[2019-03-25] MEDS ORDERED: NITROGLYCERIN 0.2MG/HR TOPICAL PATCH TD SCH (10:00)
[2019-03-25] MEDS ORDERED: CLOPIDOGREL BISULFATE 75 MG TAB PO SCH (10:00)
[2019-03-25] MEDS ORDERED: ENOXAPARIN SOD 80 MG/0.8ML SYRINGE SC SCH (10:00)
[2019-03-25] MEDS ORDERED: PANTOPRAZOLE 40 MG TAB PO SCH (10:00)
--- NOTE | 2019-03-25 10:05 | NUR ---
EXPLAIN MEDICATIONS TO THE PATIENT REGARDING THE DOSAGE, USAGE AND THE SIDE EFFECTS, VERBALIZED THAT HE UNDERSTOOD AND MEDS GIVEN ORDERED
[2019-03-25] MEDS: METOPROLOL TARTRATE 50 MG TAB PO SCH ×2 (10:07→20:45)
[2019-03-25] MEDS: hydrALAZINE HCL 25 MG TAB PO SCH ×2 (10:08→20:45)
[2019-03-25] MEDS ORDERED: POTASSIUM CHL 20MEQ/100ML 100 ML IV ONE (10:15)
--- NOTE | 2019-03-25 10:50 | NUR ---
ECHO BEING DONE
--- NOTE | 2019-03-25 11:40 | NUR ---
DR SCHULTZ IN TO SEE THE PATIENT AND STATES HE WROTE A ORDER TO TRANSFER TO [facility] AND MADE THE PATIENT AWARE
--- NOTE | 2019-03-25 11:44 | NUR ---
I called [facility] [phone] and spoke with computer methods analyst Latesha who transferred me to computer methods analyst Yandy-I let them know patient is stable for transfer to [facility] faxed to [facility] [phone] ATTN Air Quality Instrument Specialist Pamela.
--- NOTE | 2019-03-25 12:03 | NUR ---
UP TO THE SINK PERFORMING ADLS
--- NOTE | 2019-03-25 12:35 | NUR ---
ENID OLIVEIRA IN TO SEE THE PATIENT
--- NOTE | 2019-03-25 13:30 | NUR ---
ATE HIS LUNCH NO PROBLEMS
[2019-03-25] MEDS ORDERED: FUROSEMIDE 100 MG/10ML VIAL IV ONE (13:45)
--- NOTE | 2019-03-25 14:20 | NUR ---
GETTING UP TO THE BR AFTER LASIX WAS GIVEN
--- NOTE | 2019-03-25 15:20 | NUR ---
HAS A DRY COUGH, GAVE SOME HOT TEA AT HIS REQUEST
--- NOTE | 2019-03-25 16:11 | NUR ---
LYING IN BED NO COMPLAINTS
[2019-03-25] MEDS: LABETALOL HCL 5 MG/ML ML 20ML VIAL IV PRN ×2 (16:30→22:47)
--- NOTE | 2019-03-25 16:30 | NUR ---
medicated with labetalol for b/p of 187/122, 20mg iv
--- NOTE | 2019-03-25 17:02 | NUR ---
rechecked b/p 134/92, hr 92, lying in bed
--- NOTE | 2019-03-25 17:20 | NUR ---
patient coughing states it feels like he has mucus stuck in his throat, gave some warm water to let him gargle
--- NOTE | 2019-03-25 17:35 | NUR ---
CALL FROM JAMEEL AT [facility] REGARDING THE PATIENT AND STATES HE IS TRYING TO GET A BED AT [facility] FOR HIM
--- NOTE | 2019-03-25 17:45 | NUR ---
NOTIFIED DR SCHULTZ THAT THE PATIETN MAY BE GOING TO [facility] AND THAT HE DIDN'T WRITE A DISCHARGE/ TRANSFER ORDER OR FILL OUT THE PAPER WORK, STATES TO DO A TO ORDER FOR THE PAPER WORK,
--- NOTE | 2019-03-25 18:27 | NUR ---
AWARE THAT HE MIGHT BE LEAVING TONIGHT FOR [facility] ADAMSON WITH 18G SALINE LOCK FLUSHED AND PATENT, USES THE BR, DENIES PAIN, A/O TIMES 4, WILL CONTINUE TO MONITOR AND GIVE REPORT TO THE NEXT SHIFT
--- NOTE | 2019-03-25 18:32 | NUR ---
SPOKE WITH JAMEEL FROM [facility] AGAIN AND GIVE THE CHEMISTRY PANEL FROM TODAY
--- NOTE | 2019-03-25 19:20 | NUR ---
OPENING SHIFT RECEIVED REPORT FROM DAY SHIFT RN. ASSUMED CARE OF PATIENT. PATIENT IN BED WATCHING TV WITH NO SIGNS OR SYMPTOMS OF SOB, PAIN OR DISTRESS. CURRENTLY ON ROOM AIR, 02 SAT - 97%. UPDATED PATIENT ON PLAN OF CARE AND TRANSFER TO [facility]. LEFT AC IV - CLEAN/DRY/INTACT. BED IN LOWEST POSITION, SIDE RAILS UP X2, CALL LIGHT WITHIN REACH. WILL CONTINUE TO MONITOR.
--- NOTE | 2019-03-25 20:35 | NUR ---
REPORT GIVEN TO SNOW HOFFMANN.
[2019-03-25] MEDS: ATORVASTATIN 20 MG TAB PO SCH (20:44)
--- NOTE | 2019-03-25 21:05 | NUR ---
TRANSPORT DELAYED TO 2229
--- NOTE | 2019-03-25 23:08 | NUR ---
TRANSPORT DELAYED TO 2330.
[2019-03-25] MEDS: ACETAMINOPHEN 500 MG TAB PO PRN (23:48)
--- NOTE | 2019-03-26 00:12 | NUR ---
PATIENT PICKED UP AND TRANSFERRED TO [facility] WITH [facility] ADVISER ON A GURNEY. BELONGINGS SENT WITH PATIENT.
== END 2019-03-26 00:20 | disposition short-term general hospital (02) | DRG 280 ==
LOC: EDBD 07:40 → ER 07:44 → TELE 07:45 → DOU IN ICU 23:52
PROVIDERS: ADMIT Internal Medicine; ATTEND Internal Medicine
DX: I21.4 Non-ST elevation (NSTEMI) myocardial infarction (principal); N18.6 End stage renal disease; N17.0 Acute kidney failure with tubular necrosis; I12.0 Hypertensive chronic kidney disease with stage 5 chronic kidney disease or end stage renal disease; I16.1 Hypertensive emergency; E87.6 Hypokalemia; I16.0 Hypertensive urgency; I20.9 Angina pectoris, unspecified; N27.1 Small kidney, bilateral; Z72.0 Tobacco use; Z79.01 Long term (current) use of anticoagulants; Z79.02 Long term (current) use of antithrombotics/antiplatelets; Z83.3 Family history of diabetes mellitus; Z91.013 Allergy to seafood
CPT/HCPCS: 36415; 71046; 76775; 80053; 80061; 80307; 81001; 82550; 82570; 83036; 83735; 83880; 83935; 84156; 84300; 84484; 85025; 85610; 85652; 85730; 86141; 87081; 93005; 93306; 94761; 96361; 96374; 96375; 96376; 99291; G0378; J2405; J3480